=== PATIENT | male | born 1960 | race African-American/Black ===

== ENCOUNTER 2018-05-23 14:27 | Inpatient (IN) | payer OTHER ==
[2018-05-23 19:02] VITALS: BMI 23.7
--- NOTE | 2018-05-23 19:22 | HP ---
CIWA Score - Admission Criteria [facility]ASAS Guidelines: Admission for Medically Managed Detox: Requires at least one of the followin. CIWA greater than 12 2. Seizures within the past 24 hours 3. Delirium tremens within the past 24 hours 4. Hallucinations within the past 24 hours 5. Acute intervention needed for co occurring medical disorder 6. Acute intervention needed for co occurring psychiatric disorder 7. Severe withdrawal that cannot be handled at a lower level of care (continued vomiting, continued diarrhea, abnormal vital signs) requiring intravenous medication and/or fluids 8. Admission ROS [facility] - HPI Chief Complaint: Crack-cocaine and marijuana dependence Allergies/Adverse Reactions: Allergies Allergy/AdvReac Type Severity Reaction Status Date / Time No Known Drug Allergies Allergy Verified 05/23/18 18:45 History of Present Illness: 57 y.o. man with an extensive history of crack-cocaine and marijuana dependence is here seeking rehab services. He reports he last completed rehab at [facility] on 11/2017. Longest period of illicit drug abstinence has been 6 years. Exam Limitations: No Limitations - Ebola screening Have you traveled outside of the country in the last 21 days: No (N) Have you had contact with anyone from an Ebola affected area: No Do you have a fever: No - Review of Systems Constitutional: No Symptoms Reported EENT: reports: Nose Congestion Respiratory: reports: No Symptoms reported Cardiac: reports: No Symptoms Reported, Chest Tightness : reports: No Symptoms Reported Musculoskeletal: reports: Back Pain Integumentary: reports: No Symptoms Reported Neuro: reports: No Symptoms reported Endocrine: reports: No Symptoms Reported Hematology: reports: No Symptoms Reported Psychiatric: reports: Judgement Intact, Mood/Affect Appropiate Other Systems: Reviewed and Negative Patient History - Patient Medical History Hx Anemia: No Hx Asthma: No Hx Chronic Obstructive Pulmonary Disease (COPD): No Hx Cancer: No Hx Cardiac Disorders: No Hx Congestive Heart Failure: No Hx Hypertension: No Hx Hypercholesterolemia: No Hx Pacemaker: No HX Cerebrovascular Accident: No Hx Seizures: No Hx Dementia: No Hx Diabetes: No Hx Gastrointestinal Disorders: No Hx Liver Disease: No Hx Genitourinary Disorders: No Hx Sexually Transmitted Disorders: No Hx Renal Disease (ESRD): No Hx Thyroid Disease: No Hx Human Immunodeficiency Virus (HIV): No Hx Hepatitis C: No Hx Depression: Yes Hx Suicide Attempt: No Hx Bipolar Disorder: No Hx Schizophrenia: Yes - Patient Surgical History Hx Abdominal Surgery: Yes (Hernia repair in 1998) Anesthesia Reaction: No - PPD History Previous Implant?: Yes Documented Results: Negative w/o proof Implanted On Prior [facility] Admission?: No PPD to be Administered?: Yes - Reproductive History Patient is a Female of Child Bearing Age (11 -55 yrs old): No - Smoking Cessation Smoking history: Current every day smoker Have you smoked in the past 12 months: Yes Aproximately how many cigarettes per day: 6 Initiated information on smoking cessation: Yes 'Breaking Loose' booklet given: 05/23/18 - Substance & Tx. History Hx Alcohol Use: No Hx Substance Use: Yes Substance Use Type: Cocaine, Marijuana Hx Substance Use Treatment: Yes (Rehab: 11/2017) - Substances abused Cocaine Substance route: Smoking Frequency: Daily Amount used: $50 Age of first use: 38 Date of last use: 05/22/18 Marijuana/Hashish Substance route: Smoking Frequency: 3-6 times per week Amount used: $10 Age of first use: 17 Date of last use: 05/22/18 Family Disease History - Family Disease History Family Disease History: CA: Grandparent (Grandmother: ), Other: Father (ETOH dependence) Admission Physical Exam [facility] - Vital Signs Vital Signs: Vital Signs - 24 hr 05/23/18 05/23/18 18:47 19:11 Temperature 97.0 F L 97.0 F L Pulse Rate 62 62 Respiratory 18 18 Rate Blood Pressure 110/73 110/73 - Physical General Appearance: Yes: Within Normal Limits, No Apparent Distress, Nourished, Appropriately Dressed HEENTM: Yes: Hearing grossly Normal, Normal ENT Inspection, Normocephalic, Normal Voice, Rhinorrhea Respiratory: Yes: Chest Non-Tender, Lungs Clear, Normal Breath Sounds Neck: Yes: Within Normal Limits, No masses,lesions,Nodules Breast: Yes: Breast Exam Deferred Cardiology: Yes: Regular Rhythm, Regular Rate Abdominal: Yes: Normal Bowel Sounds, Non Tender, Flat Genitourinary: Yes: Other (No complaints reported) Musculoskeletal: Yes: full range of Motion, Gait Steady, Pelvis Stable Extremities: Yes: Normal Capillary Refill, Normal Inspection, Normal Range of Motion Neurological: Yes: Alert, Motor Strength 5/5, Normal Mood/Affect, Normal Response Integumentary: Yes: Normal Color, Dry, Warm Lymphatic: Yes: Within Normal Limits - Diagnostic (1) Cocaine dependence Current Visit: Yes Status: Chronic (2) Marijuana dependence Current Visit: Yes Status: Chronic (3) Nicotine dependence Current Visit: Yes Status: Chronic (4) Osteoarthritis Current Visit: Yes Status: Chronic Cleared for Admission [facility] - Detox or Rehab [facility] Level of Care: Observation Bed Detox Regimen/Protocol: Not Applicable Claeared for Rehab Admission: Yes Breathalyzer - Breathalyzer Breathalyzer: 0 Urine Drug Screen - Test Device Lot number: [id number] Expiration date: 01/07/20 - Control Is test valid?: Yes - Results Drug screen NEGATIVE: No Urine drug screen results: ADALI-Cocaine Inpatient Rehab Admission - Rehab Decision to Admit Inpatient rehab admission?: Yes - Initial Determination Are CD services needed?: Yes Free of communicable disease: Yes Not in need of hospitalization: Yes - Rehab Admission Criteria Previous failed treatment: Yes Poor recovery environment: Yes Comorbidities: Yes Lacks judgement: Yes Patient is meeting Inpatient Rehab admission criteria:: Yes
[2018-05-23] MEDS ORDERED: LOPERAMIDE HCL 2 MG CAPSULE PO PRN (19:33)
[2018-05-23] MEDS ORDERED: hydrOXYzine PAMOATE 50 MG CAPSULE (FP) PO PRN (19:33)
[2018-05-23] MEDS ORDERED: IBUPROFEN 400 MG TABLET (FP) PO PRN (19:33)
[2018-05-23] MEDS ORDERED: MAGNESIUM HYDROX 2400MG/30ML ORAL SUSPENSION 30 ML CUP PO PRN (19:33)
[2018-05-23] MEDS ORDERED: MENTHOL/PHENOL 1 EACH UD MM PRN (19:33)
[2018-05-23] MEDS ORDERED: MAG HYDROX/AL HYDROX/SIMETH 30 ML UNIT-DOSE CUP PO PRN (19:33)
[2018-05-23] MEDS ORDERED: MAGNESIUM CITRATE 300 ML BOTTLE PO PRN (19:33)
[2018-05-23] MEDS ORDERED: guaiFENesin 200 MG/10 ML 10 ML UNIT-DOSE CUPS PO PRN (19:33)
[2018-05-23] MEDS: THIAMINE HCL 100 MG TABLET (FP) PO SCH (20:59)
[2018-05-23] MEDS: diphenhydrAMINE HCL 50 MG CAPSULE PO SCH (20:59)
[2018-05-24] MEDS: PRENATAL VITAMINS W/ FOLIC ACID TABLET (FP) PO SCH (10:40)
--- NOTE | 2018-05-24 12:24 | EKG ---
Test Reason : Blood Pressure : / mmHG Vent. Rate : 059 BPM Atrial Rate : 059 BPM P-R Int : 162 ms QRS Dur : 082 ms QT Int : 400 ms P-R-T Axes : 063 059 058 degrees QTc Int : 396 ms SINUS BRADYCARDIA OTHERWISE NORMAL ECG NO PREVIOUS ECGS AVAILABLE Confirmed by MALVIN WAN, CHELSEA ([id number]) on 05/24/2018 12:24:19 PM Referred By: Confirmed By:CHELSEA COOMBS MD
[2018-05-24 12:50] LABS: ALBUMIN 3.6 g/dl (3.4-5.0); ALK PHOS 60 U/L (45-117); ANION GAP 5 MMOL/L (8-16); BILIRUBIN,TOTAL 0.4 mg/dL (0.2-1); BLOOD UREA NITROGEN 12 mg/dL (7-18); CHLORIDE 106 mmol/L (98-107); CO2 28 mmol/L (21-32); GLUCOSE,RANDOM 97 mg/dL (74-106); POTASSIUM 4.5 mmol/L (3.5-5.1); SGOT/AST 14 U/L (15-37); SGPT/ALT 24 U/L (13-61); SODIUM 138 mmol/L (136-145); TOT PROT 7.7 g/dl (6.4-8.2)
[2018-05-24 13:26] LABS: HEMOGLOBIN 14.3 GM/dL (11.7-16.9); MCH 31.2 pg (25.7-33.7); MEAN CELL VOLUME 91.7 fl (80-96); MEAN PLT VOLUME 8.6 fl (7.5-11.1); PLATELET COUNT 198 K/MM3 (134-434); RBC 4.59 M/mm3 (4.00-5.60); RDW 13.7 % (11.9-15.9); WHITE BLOOD COUNT 5.3 K/mm3 (4.0-10.0)
[2018-05-24 15:40] LABS: URINE APPEARANCE CLEAR; URINE BILIRUBIN NEGATIVE (NEGATIVE); URINE COLOR YELLOW; URINE GLUCOSE (UA) NEGATIVE (NEGATIVE); URINE KETONE NEGATIVE (NEGATIVE); URINE LEUK ESTERASE NEGATIVE (NEGATIVE); URINE NITRITE NEGATIVE (NEGATIVE); URINE PROTEIN NEGATIVE (NEGATIVE); URINE UROBILINOGEN 0.2 mg/dL (0.2-1.0)
[2018-05-24] MEDS: diphenhydrAMINE HCL 50 MG CAPSULE PO SCH (21:22)
[2018-05-24] MEDS: THIAMINE HCL 100 MG TABLET (FP) PO SCH (21:22)
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
[2018-05-25] MEDS: PRENATAL VITAMINS W/ FOLIC ACID TABLET (FP) PO SCH (10:30)
[2018-05-25] MEDS ORDERED: COLLOIDAL OATMEAL 1 BAR EACH TP PRN (13:45)
[2018-05-25] MEDS: P-EPHED 60MG/TRIPROLIDI 2.5MG TABLET PO PRN (13:51)
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
[2018-05-25] MEDS: BACITRACIN 0.9 GM PACKET TP SCH ×2 (15:48→21:35)
[2018-05-25] MEDS: diphenhydrAMINE HCL 50 MG CAPSULE PO SCH (21:35)
[2018-05-25] MEDS: MIRTAZAPINE 30 MG TABLET (FP) PO SCH (21:35)
[2018-05-25] MEDS: ARIPiprazole 10 MG TABLET PO SCH (21:35)
[2018-05-25] MEDS: THIAMINE HCL 100 MG TABLET (FP) PO SCH (21:36)
[2018-05-26] MEDS: BACITRACIN 0.9 GM PACKET TP SCH ×2 (10:21→21:44)
[2018-05-26] MEDS: PRENATAL VITAMINS W/ FOLIC ACID TABLET (FP) PO SCH (10:21)
[2018-05-26] MEDS: P-EPHED 60MG/TRIPROLIDI 2.5MG TABLET PO PRN ×2 (10:22→21:25)
[2018-05-26] MEDS: THIAMINE HCL 100 MG TABLET (FP) PO SCH (21:24)
[2018-05-26] MEDS: MELATONIN 5 MG TABLETS PO PRN (21:24)
[2018-05-26] MEDS: MIRTAZAPINE 30 MG TABLET (FP) PO SCH (21:24)
[2018-05-26] MEDS: ARIPiprazole 10 MG TABLET PO SCH (21:24)
[2018-05-26] MEDS: diphenhydrAMINE HCL 50 MG CAPSULE PO SCH (21:24)
[2018-05-27] MEDS: P-EPHED 60MG/TRIPROLIDI 2.5MG TABLET PO PRN ×2 (05:59→21:56)
[2018-05-27] MEDS: PRENATAL VITAMINS W/ FOLIC ACID TABLET (FP) PO SCH (10:14)
[2018-05-27] MEDS: BACITRACIN 0.9 GM PACKET TP SCH ×2 (10:14→21:53)
[2018-05-27] MEDS: diphenhydrAMINE HCL 50 MG CAPSULE PO SCH (21:53)
[2018-05-27] MEDS: ARIPiprazole 10 MG TABLET PO SCH (21:54)
[2018-05-27] MEDS: MIRTAZAPINE 30 MG TABLET (FP) PO SCH (21:54)
[2018-05-27] MEDS: THIAMINE HCL 100 MG TABLET (FP) PO SCH (21:54)
[2018-05-27] MEDS: MELATONIN 5 MG TABLETS PO PRN (21:56)
[2018-05-28] MEDS: PRENATAL VITAMINS W/ FOLIC ACID TABLET (FP) PO SCH (10:26)
[2018-05-28] MEDS: BACITRACIN 0.9 GM PACKET TP SCH ×2 (10:26→22:32)
[2018-05-28] MEDS: P-EPHED 60MG/TRIPROLIDI 2.5MG TABLET PO PRN (17:45)
[2018-05-28] MEDS: MIRTAZAPINE 30 MG TABLET (FP) PO SCH (22:32)
[2018-05-28] MEDS: diphenhydrAMINE HCL 50 MG CAPSULE PO SCH (22:32)
[2018-05-28] MEDS: ARIPiprazole 10 MG TABLET PO SCH (22:32)
[2018-05-28] MEDS: THIAMINE HCL 100 MG TABLET (FP) PO SCH (22:32)
[2018-05-29] MEDS: PRENATAL VITAMINS W/ FOLIC ACID TABLET (FP) PO SCH (10:48)
[2018-05-29] MEDS: BACITRACIN 0.9 GM PACKET TP SCH ×2 (10:49→21:30)
[2018-05-29] MEDS: P-EPHED 60MG/TRIPROLIDI 2.5MG TABLET PO PRN (13:49)
[2018-05-29] MEDS: ARIPiprazole 10 MG TABLET PO SCH (21:30)
[2018-05-29] MEDS: diphenhydrAMINE HCL 50 MG CAPSULE PO SCH (21:30)
[2018-05-29] MEDS: THIAMINE HCL 100 MG TABLET (FP) PO SCH (21:30)
[2018-05-29] MEDS: MIRTAZAPINE 30 MG TABLET (FP) PO SCH (21:30)
[2018-05-30] MEDS: PRENATAL VITAMINS W/ FOLIC ACID TABLET (FP) PO SCH (10:42)
[2018-05-30] MEDS: BACITRACIN 0.9 GM PACKET TP SCH ×2 (10:42→21:47)
[2018-05-30] MEDS ORDERED: COLLOIDAL OATMEAL 1 BAR EACH TP PRN (16:06)
[2018-05-30] MEDS: ARIPiprazole 10 MG TABLET PO SCH (21:47)
[2018-05-30] MEDS: ACETAMINOPHEN 325 MG TABLET (FP) PO PRN (21:47)
[2018-05-30] MEDS: THIAMINE HCL 100 MG TABLET (FP) PO SCH (21:47)
[2018-05-30] MEDS: MIRTAZAPINE 30 MG TABLET (FP) PO SCH (21:47)
[2018-05-30] MEDS: diphenhydrAMINE HCL 50 MG CAPSULE PO SCH (22:01)
[2018-05-31] MEDS: PRENATAL VITAMINS W/ FOLIC ACID TABLET (FP) PO SCH (09:37)
[2018-05-31] MEDS: BACITRACIN 0.9 GM PACKET TP SCH ×2 (09:37→21:20)
[2018-05-31] MEDS: diphenhydrAMINE HCL 50 MG CAPSULE PO SCH (21:20)
[2018-05-31] MEDS: MIRTAZAPINE 30 MG TABLET (FP) PO SCH (21:20)
[2018-05-31] MEDS: ARIPiprazole 10 MG TABLET PO SCH (21:20)
[2018-05-31] MEDS: THIAMINE HCL 100 MG TABLET (FP) PO SCH (21:20)
[2018-05-31] MEDS: ACETAMINOPHEN 325 MG TABLET (FP) PO PRN (21:21)
[2018-06-01 06:50] VITALS: BP 119/71; PULSE 108; TEMP 97.7
--- NOTE | 2018-06-01 10:00 | PN ---
[facility] Progress Note Note: Patient is discharged today. Scripts for 30 days supply of medications(Abilify 10 mg/hs, Remeron 30 mg/hs) are electronically transmitted to [facility] at [address] [place], [place] [id number]
[2018-06-01] MEDS: BACITRACIN 0.9 GM PACKET TP SCH (10:24)
[2018-06-01] MEDS: PRENATAL VITAMINS W/ FOLIC ACID TABLET (FP) PO SCH (10:24)
--- NOTE | 2018-06-01 10:39 | PN ---
[facility] Progress Note Note: PT COMPLETED REHAB AND DISCHARGED TODAY. PT MET WITH THE COUNSELOR AND HAS BEEN REFERRED TO [facility] [address] [place], [place]. REPORTS HE HAS A PCP ON [place], [place] FOR MEDICAL MANAGEMENT(SAYS I FORGOT HER NAME BUT IT' S A LADY AND I'M ABOUT TO CHANGE TO ANOTHER DOCTOR CLOSE BY ME IN [place]"). ALERT O X 3. DENIES S/H/I. Home Medications Medication Instructions Recorded Aripiprazole 10 mg PO DAILY 05/23/18 Diphenhydramine [Benadryl -] 50 mg PO HS 05/23/18 Mirtazapine [Remeron -] 30 mg PO HS 05/23/18 Aripiprazole [Abilify -] 10 mg PO HS #30 tablet 06/01/18 Mirtazapine [Remeron -] 30 mg PO HS #30 tablet 06/01/18 Laboratory Tests 05/24/18 05/24/18 05/24/18 08:00 08:00 08:00 WBC 5.3 RBC 4.59 Hgb 14.3 Hct 42.0 MCV 91.7 MCH 31.2 MCHC 34.0 RDW 13.7 Plt Count 198 MPV 8.6 Sodium 138 Potassium 4.5 Chloride 106 Carbon Dioxide 28 Anion Gap 5 L BUN 12 Creatinine 1.0 Creat Clearance w eGFR 77.02 Random Glucose 97 Calcium 9.0 Total Bilirubin 0.4 AST 14 L ALT 24 Alkaline Phosphatase 60 Total Protein 7.7 Albumin 3.6 Urine Color Urine Appearance Urine pH Ur Specific [place] Urine Protein Urine Glucose (UA) Urine Ketones Urine Blood Urine Nitrite Urine Bilirubin Urine Urobilinogen Ur Leukocyte Esterase RPR Titer Nonreactive Hep C Ab Diagnostic 05/24/18 05/24/18 08:00 12:00 WBC RBC Hgb Hct MCV MCH MCHC RDW Plt Count MPV Sodium Potassium Chloride Carbon Dioxide Anion Gap BUN Creatinine Creat Clearance w eGFR Random Glucose Calcium Total Bilirubin AST ALT Alkaline Phosphatase Total Protein Albumin Urine Color Yellow Urine Appearance Clear Urine pH 8.0 Ur Specific [place] 1.008 L Urine Protein Negative Urine Glucose (UA) Negative Urine Ketones Negative Urine Blood Negative Urine Nitrite Negative Urine Bilirubin Negative Urine Urobilinogen 0.2 Ur Leukocyte Esterase Negative RPR Titer Hep C Ab Diagnostic <0.1 NAD MEDICALLY STABLE PLAN:FOLLOW UP WITH CD AFTERCARE RECOMMENDED ON 06/01/18 AT 1:00 P.M FOLLOW UP WITH YOUR PCP WITHIN 1-2 WEEKS AFTER DISCHARGE.
== END 2018-06-01 11:05 | disposition home or self-care (01) | DRG 772 ==
LOC: YASAS 14:27 → Y5N 19:24
PROVIDERS: ADMIT Neuromusculoskeletal Medicine & OMM; ATTEND Neuromusculoskeletal Medicine & OMM
PROC: HZ42ZZZ Group Counseling for Substance Abuse Treatment, Cognitive-Behavioral (ICD-10-PCS; principal; 2018-05-23)
DX: F14.20 Cocaine dependence, uncomplicated (principal); F12.20 Cannabis dependence, uncomplicated; F17.210 Nicotine dependence, cigarettes, uncomplicated; F25.9 Schizoaffective disorder, unspecified; F19.282 Other psychoactive substance dependence with psychoactive substance-induced sleep disorder; M17.10 Unilateral primary osteoarthritis, unspecified knee; Z87.09 Personal history of other diseases of the respiratory system; Z87.828 Personal history of other (healed) physical injury and trauma; Z91.5 Personal history of self-harm
CPT/HCPCS: 36415; 80053; 81003; 85027; 86593; 86803; 93005; 93010